=== PATIENT | male | born 1990 | race Caucasian/White ===

== ENCOUNTER 2023-05-07 23:22 | Emergency (ER) | payer OTHER ==
[2023-05-07 23:59] VITALS: TEMP 96.1; BMI 24.3
[2023-05-08] MEDS ORDERED: SODIUM CHLORIDE 0.9% 500 ML INFUS.BAG IV ONE (01:00)
[2023-05-08] MEDS ORDERED: ONDANSETRON 4 MG/2 ML VIAL IVPUSH ONE (01:00)
[2023-05-08] MEDS ORDERED: ONDANSETRON 4 MG/2 ML VIAL ONE (01:36)
[2023-05-08 02:00] LABS: BASO % 0.1 % (0-2.0); HEMATOCRIT 39.3 % (35.4-49); HEMOGLOBIN 13.2 GM/dL (11.7-16.9); LYMPH % 10.3 % (8-40); MCH 29.2 pg (25.7-33.7); MCHC 33.6 g/dl (32.0-35.9); MEAN CELL VOLUME 86.9 fl (80-96); MEAN PLT VOLUME 7.9 fl (7.5-11.1); MONO % 5.6 % (3.8-10.2); PLATELET COUNT 283 10^3/uL (134-434); RBC 4.52 M/mm3 (4.00-5.60); RDW 14.2 % (11.9-15.9); WHITE BLOOD COUNT 10.5 K/mm3 (4.0-10.0)
[2023-05-08 02:31] LABS: ALBUMIN 4.2 g/dl (3.4-5.0); CALCIUM 8.6 mg/dL (8.5-10.1)
[2023-05-08 02:32] LABS: BLOOD UREA NITROGEN 12.9 mg/dL (7-18)
[2023-05-08 02:34] LABS: CREATININE 0.9 mg/dL (0.55-1.3)
[2023-05-08 02:36] LABS: BILIRUBIN,TOTAL 0.4 mg/dL (0.2-1)
[2023-05-08 05:44] VITALS: BP 114/73; PULSE 76; RESP 18
== END 2023-05-08 06:24 | disposition home or self-care (01) ==
LOC: JER 23:22
PROC: 3E033GC Introduction of Other Therapeutic Substance into Peripheral Vein, Percutaneous Approach (ICD-10-PCS; principal; 2023-05-08)
DX: F10.920 Alcohol use, unspecified with intoxication, uncomplicated (principal); R11.2 Nausea with vomiting, unspecified
CPT/HCPCS: 36415; 80053; 82962; 83690; 85025; 99284-25